=== PATIENT | male | born 1985 ===

== ENCOUNTER → 2019-06-10 | Outpatient (CLI) | payer OTHER ==
--- NOTE | 2019-06-10 16:22 | KCIC ---
EXAM: 1. Left ankle 3 views. 2. Left calcaneus 2 views. HISTORY: Left ankle and calcaneal pain after injury. COMPARISON: None. FINDINGS: There is soft tissue swelling laterally at the ankle. No fractures are identified throughout the ankle and calcaneus. The joint spaces and alignment of the mortise and subtalar joint appear maintained. IMPRESSION: 1. Lateral soft tissue swelling. No fracture. Electronically signed by: Aura Domingo MD (06/10/2019 4:20 PM) [place] [id number]
== END | disposition home or self-care (01) ==
LOC: KCIC 15:46
PROVIDERS: ATTEND Family Medicine
DX: M79.89 Other specified soft tissue disorders (principal); M25.572 Pain in left ankle and joints of left foot; M25.472 Effusion, left ankle
CPT/HCPCS: 73610; 73650